=== PATIENT | female | born 1995 ===

== ENCOUNTER → 2025-06-23 09:22 | Outpatient (REF) | payer OTHER, SELFPAY | LOC: HWRAD 09:22 | PROVIDERS: ATTENDING PHYSICIAN Student in an Organized Health Care Education/Training Program; FAMILY PHYSICIAN Family Medicine | DX: R22.0 Localized swelling, mass and lump, head (principal) | CPT/HCPCS: 76536 ==

== ENCOUNTER → 2025-07-07 18:19 | Outpatient (REF) | payer OTHER, SELFPAY | LOC: CLAB 18:19 | PROVIDERS: ATTENDING PHYSICIAN Student in an Organized Health Care Education/Training Program | DX: K11.5 Sialolithiasis (principal) | CPT/HCPCS: 88173 ==